=== PATIENT | female | born 1975 | race Caucasian/White ===

== ENCOUNTER 2016-12-26 15:37 | Inpatient (IN) | payer MEDICAID ==
[~2016-12-26] VITALS: Ht 160 cm; Wt 42.2 kg
--- NOTE | ~2016-12-26 | HP ---
PATIENT: CINDI SCHMIDT MEDICAL RECORD: [id number] ACCOUNT: [id number] LOCATION:[facility] : 75 ADMISSION DATE: 12/26/16 HISTORY AND PHYSICAL EXAMINATION This is a history and physical addendum. DATE OF ADMISSION: 12/26/2016 CHIEF COMPLAINT: Bug bite. HISTORY OF PRESENT ILLNESS: The patient thinks that she was bitten by a bug. She states that she thought there was something on her face that bit her. Symptoms came on suddenly. It involves the right cheek. The right hemiface is swollen and there is erythema that extends up to the lower eyelid. The patient is going to be admitted. We are going to obtain an ENT consultation. Either myself or Dr. Bran will proceed with debridement of the face and drainage of the abscess. Palpation aggravates. Nothing alleviates. Symptoms are worsening. This is a history and physical addendum. For the typed portion of the history and physical, please see the chart. This would include the past medical and surgical history, allergies, social history, family history, as well as current medications. REVIEW OF SYSTEMS: No nausea, no vomiting, no fever, no chills, no chest pain, no shortness of breath. Review of systems is negative other than as is described above. PHYSICAL EXAMINATION: GENERAL: The patient does appear acutely ill. Also appears chronically ill. The entire physical examination was performed in the presence of a female nurse. VITAL SIGNS: Reviewed. EARS: External ears appear normal. EYES: Extraocular movements are intact. NECK: Trachea is midline. CHEST: No intercostal retractions. PULMONARY: Nonlabored, no stridor. ABDOMEN: No peritonitis with movement. EXTREMITIES: No peripheral cyanosis. INTEGUMENT: As described above. Positive for rash, positive for ulceration and eschar. EXTREMITIES: No peripheral cyanosis. BACK: No thoracic kyphosis. PSYCHIATRIC: Anxious affect. NEUROLOGIC: Answers questions appropriately. LYMPHATICS: No lymphangitic streaking of face. IMPRESSION: Right facial abscess, I doubt that it was due to a bug bite or insect bite, but it appears to be spreading and worsening. PLAN: Admit. IV antibiotics. Narcotic analgesia. ENT consultation. TRANSINT:[id number] Voice Confirmation ID: [id number] DOCUMENT ID: [id number] HISTORY AND PHYSICAL [id number] CINDI SCHMIDT ROBERT MD CC: [id number] DICTATION DATE: 12/27/16 1739 GAS DISPATCHER: 12/27/16 182 ADM IN [place] [id number] [place] [id number]
[~2016-12-26 15:37] MED LIST: PREDNISONE; PROVENTIL HFA6.7 GM INH
[2016-12-26 17:21] LABS: BASOPHILS 0.3 % (0-2); EOSINOPHILS 0.5 % (0-7); HEMATOCRIT 40.9 % (36.0-48.0); HEMOGLOBIN 13.8 g/dL (12-16); IMMATURE GRANULOCYTES 0.3 % (0-5); MCH 31.9 pg (26.0-34.0); MCHC 33.7 g/dL (31.0-37.0); MCV 94.7 fL (80.0-100.0); MEAN PLATELET VOLUME 11.9 fL (7.4-10.4); MONOCYTES 8.8 % (2-11); NEUTROPHILS 74.1 % (40-80); PLATELET COUNT 157 10x3/uL (130-400); RBC 4.32 10x6/uL (4.00-5.40); RDW 12.7 % (11.5-14.5); WBC 15.1 10x3/uL (4.8-10.8)
[2016-12-26 17:31] LABS: APTT 30.5 SECONDS (22.8-39.4); INR 1.09 (0.85-1.17)
[2016-12-26 17:33] LABS: ALBUMIN 3.5 g/dL (3.4-5.0); ALKALINE PHOSPHATASE 56 U/L (46-116); ALT (SGPT) 34 U/L (10-68); CALC OSMOLALITY 268 mosm/kg (275-300); CALCIUM 9.1 mg/dL (8.5-10.1); CARBON DIOXIDE 26.7 mmol/L (21.0-32.0); CHLORIDE - SERUM 100 mmol/L (98-107); CREATININE - SERUM 0.7 mg/dL (0.6-1.3); GLUCOSE 111 mg/dL (74-106); PROTEIN - SERUM 7.4 g/dL (6.4-8.2); SODIUM 135 mmol/L (136-145); UREA NITROGEN 6 mg/dL (7-18); eGFR NON AFRICAN AMERICAN > 90 mL/min (90-120)
[2016-12-26] MEDS ORDERED: ASPIRIN325 MG PO (23:28)
[2016-12-27] VITALS (7 sets, daily range): BP systolic 101–113; BP diastolic 55–74; Ht 160 cm; Wt 42.2 kg
--- NOTE | 2016-12-27 07:45 | NUR ---
ASSESSMENT PER FLOW SHEET.PT WITHOUT DISTRESS.DENIES NEEDS.NPO FOR SURGERY TODAY,CALL LIGHT IN REACH
--- NOTE | 2016-12-27 09:29 | NUR ---
PREMEDS AND PAIN MEDS PER MAR ORDERED.
--- NOTE | 2016-12-27 09:35 | NUR ---
TO OR VIA BED
--- NOTE | 2016-12-27 11:00 | NUR ---
CONTACT ISOLATION ON ARRIVAL TO UNIT FROM PACU
--- NOTE | 2016-12-27 11:08 | NUR ---
BACK FROM PACU VIA BED.DRESSING RIGHT FACE CDI.
--- NOTE | 2016-12-27 16:08 | NUR ---
FAMILY AT BEDSIDE.PT REMAINS WITHOUT DISTRESS.PT HAS BEEN UP TO SHOWER AND TOLERATING REG DIET.MONITOR FOR NEEDS.
--- NOTE | 2016-12-27 19:45 | NUR ---
PATIENT RESTING IN BED AND DENIES NEEDS AT THIS TIME. BED IN LOWEST POSITION AND CALL LIGHT WITHIN REACH. ENCOURAGED THE PATIENT TO CALL IF SHE HAS NEEDS.
[2016-12-28 04:00] VITALS: BP 100/64
--- NOTE | 2016-12-28 07:25 | NUR ---
REQUESTING TO GO OUTSIDE, TOLD PT TO WAIT FOR DR TO ROUND, NO DISTRESS NOTED, CALL LIGHT IN REACH, WILL CONTINUE TO MONITOR
[2016-12-28 08:29] VITALS: BP 129/92
[2016-12-28] MEDS ORDERED: BACTRIM DS TABL1 TAB PO (08:34)
[2016-12-28] MEDS ORDERED: VIBRAMYCIN 100100 MG PO (08:34)
[2016-12-28] MEDS ORDERED: HYDROCODON-ACE1 EAC7 PO (08:34)
--- NOTE | 2016-12-28 09:26 | NUR ---
DISCHARGE INSTRUCTIONS AND PAPERS GIVEN, QUESTIONS ANSWERED, IV REMOVED TIP INTACT, DC PER WC WITH BELONGINGS
--- NOTE | 2016-12-30 16:59 | OP ---
PATIENT NAME: CINDI SCHMIDT MEDICAL RECORD: [id number] :75 LOCATION:[facility] ADMISSION DATE:12/26/16 SURGEON: AUSTYN VALLE MD DATE OF OPERATION: 12/27/2016 PREOPERATIVE DIAGNOSIS: Right facial abscess and cellulitis. POSTOPERATIVE DIAGNOSIS: Right facial abscess and cellulitis. PROCEDURE: Incision and drainage of right facial abscess. SURGEON: Austyn Valle MD ANESTHESIA: General. COMPLICATIONS: None. PACKING: Quarter inch plain gauze. COMPLICATIONS: None. DISPOSITION: Recovery stable. DESCRIPTION OF PROCEDURE: She was brought to the operating room and placed in supine position, sedated by anesthesia. The patient was prepped and draped in the usual sterile fashion. She has a large abscess over the right cheek with some overlying necrotic skin. A 15-blade was used to excise the necrotic skin, which was less than 1 x 1 cm. Then, just copious purulence was extruded and cultures were obtained. The wound was opened up, it was a large abscess in the cheek. The mucosa of the oral cavity was intact. First a hemostat and then cotton swabs were used to curette all out of the wound, removing all of the purulent infected material. It was then irrigated repeatedly and then coated with mupirocin ointment as it was debrided again and curetted out all this infected material. Once it was completely clean, it was packed with about a foot of quarter inch plain gauze coated copiously with mupirocin ointment. A dressing was applied. She was awakened, extubated, and transported to recovery in good condition. No complications. TRANSINT:[id number] Voice Confirmation ID: [id number] DOCUMENT ID: [id number] AUSTYN VALLE MD at 1659 CC: [id number] DICTATION DATE: 12/27/16 1344 TRANSPORTATION MECHANIC: 12/27/16 1355 DIS IN 12/28/[address] [id number]
== END 2016-12-28 10:05 | disposition home or self-care (01) | DRG 603 ==
LOC: D.ER 15:37 → D.MS 18:28
PROVIDERS: Nurse Practitioner Acute Care; Otolaryngology; ADMIT Surgery
PROC: 0H91XZZ Drainage of Face Skin, External Approach (ICD-10-PCS; principal; 2016-12-27 09:30)
DX: L02.01 Cutaneous abscess of face (principal); L03.211 Cellulitis of face; B95.62 Methicillin resistant Staphylococcus aureus infection as the cause of diseases classified elsewhere; J44.9 Chronic obstructive pulmonary disease, unspecified; F17.200 Nicotine dependence, unspecified, uncomplicated

== ENCOUNTER 2018-09-14 12:36 | Emergency (ER) | payer MEDICAID ==
[~2018-09-14] VITALS: Ht 160 cm; Wt 37.3 kg
[~2018-09-14 12:36] MED LIST changes: +ASPIRIN325 MG PO; +BACTRIM DS TABL1 TAB PO; +HYDROCODON-ACE1 EAC7 PO; +VIBRAMYCIN 100100 MG PO
[2018-09-14 12:41] VITALS: Ht 160 cm; Wt 37.3 kg
[2018-09-14] MEDS ORDERED: HYDROCODON-ACE1 EAC7 PO (15:21)
[2018-09-14 15:35] VITALS: BP 138/96
== END 2018-09-14 15:36 | disposition home or self-care (01) ==
LOC: D.ER 12:36
DX: S02.2XXA Fracture of nasal bones, initial encounter for closed fracture (principal); Y04.2XXA Assault by strike against or bumped into by another person, initial encounter; Y93.89 Activity, other specified; Y92.89 Other specified places as the place of occurrence of the external cause

== ENCOUNTER 2019-08-25 20:57 | Inpatient (IN) | payer MEDICAID ==
[~2019-08-25] VITALS: Ht 160 cm; Wt 36.4 kg
[2019-08-25 21:33] LABS: BASOPHILS 0.4 % (0-2); EOSINOPHILS 0.8 % (0-7); HEMATOCRIT 38.9 % (36.0-48.0); HEMOGLOBIN 12.8 g/dL (12-16); IMMATURE GRANULOCYTES 0.2 % (0-5); LYMPHOCYTES 26.2 % (15-50); MCH 30.5 pg (26.0-34.0); MCHC 32.9 g/dL (31.0-37.0); MCV 92.8 fL (80.0-100.0); MEAN PLATELET VOLUME 11.5 fL (7.4-10.4); MONOCYTES 7.6 % (2-11); NEUTROPHILS 64.8 % (40-80); PLATELET COUNT 257 10x3/uL (130-400); RBC 4.19 10x6/uL (4.00-5.40); RDW 13.6 % (11.5-14.5); WBC 12.4 10x3/uL (4.8-10.8)
[2019-08-25 21:44] LABS: ANION GAP 11.6 mmol/L (8-16); CALCIUM 9.2 mg/dL (8.5-10.1); CARBON DIOXIDE 27.9 mmol/L (21.0-32.0); CREATININE - SERUM 0.9 mg/dL (0.6-1.3); POTASSIUM - SERUM 3.5 mmol/L (3.5-5.1)
[2019-08-25 21:46] LABS: APTT 27.9 SECONDS (22.8-39.4); INR 0.98 (0.85-1.17)
[2019-08-25 21:50] LABS: BILIRUBIN - TOTAL 0.41 mg/dL (0.2-1.3); MAGNESIUM - SERUM 2.1 mg/dL (1.8-2.4); PROTEIN - SERUM 8.1 g/dL (6.4-8.2)
[2019-08-25 21:52] LABS: HCG SERUM NEGATIVE (NEGATIVE)
[2019-08-25 22:15] VITALS: BP 144/91
--- NOTE | 2019-08-25 22:15 | NUR ---
PT REQUESTING TO GO OUTSIDE. PT STATES "I JUST NEED A FEW MINUTES OUTSIDE". RN EXPLAINED TO PT THE IMPORTANCE OF STAYING IN ROOM TO TEND TO HER NEEDS. PT REFUSING AND REQUESTING TO LEAVE AMA
[2019-08-25 22:22] LABS: BILIRUBIN NEGATIVE (NEGATIVE); GLUCOSE NEGATIVE (NEGATIVE); KETONE NEGATIVE (NEGATIVE); NITRITE POSITIVE (NEGATIVE); SPECIFIC GRAVITY 1.015 (1.005-1.020); UROBILINOGEN NORMAL (NORMAL)
--- NOTE | 2019-08-25 22:22 | NUR ---
PT REFUSED TO SIGN AMA FORM. 2 RNS AT SIDE TO WITNESS. RISKS OF LEAVING EXPLAINED TO PT BY 3 DIFFERENT RNS. PT STATES SHE IS LEAVING ANYWAY. EDP AURELIO HINDS
[2019-08-25 22:23] LABS: BACTERIA MANY /hpf (NEGATIVE); EPITHELIAL CELLS 0-5 /hpf (0-5); RED CELLS - URINE NONE SEEN /hpf (0-5)
[2019-08-25 22:24] LABS: UDS - AMPHET POSITIVE QUAL (NEGATIVE); UDS - BARB NEGATIVE QUAL (NEGATIVE); UDS - BENZO POSITIVE QUAL (NEGATIVE); UDS - COCAINE NEGATIVE QUAL (NEGATIVE); UDS - OPIATE NEGATIVE QUAL (NEGATIVE); UDS - PCP NEGATIVE QUAL (NEGATIVE); UDS - THC POSITIVE QUAL (NEGATIVE)
--- NOTE | 2019-08-25 22:35 | NUR ---
PT LEFT ED AND WENT TO PARKING LOT AND SPOKE WITH FRIEND. PT FRIEND AT SIDE. PT RETURNED TO ED WITHOUT LEAVING HOSPITAL PROPERTY. EDP AURELIO NOTIFIED.
[2019-08-25 22:45] VITALS: BP 119/79
--- NOTE | 2019-08-25 23:00 | NUR ---
VERBAL ORDER TO CANCEL IV MORPHINE ORDER PER DR CAREY
--- NOTE | 2019-08-25 23:09 | NUR ---
PATIENTS IV RESTARTED. 20 G LEFT FOREARM X 3 ATTEMPTS
[2019-08-25 23:15] VITALS: BP 145/92
[2019-08-25 23:45] VITALS: BP 133/89
[2019-08-26 00:34] VITALS: BP 138/84
--- NOTE | 2019-08-26 00:44 | NUR ---
Patient received from the emergency room via stretcher at this time, Patient very agitated and yelling at staff demanding something to drink and something for pain. Patient was advised that she was not allowed to have anything to drink due to possible emergent surgery and pending surgery in the a.m. Patient begin to become very agitated yelling and cussing at staff, patient states that "I will get something to drink even if I have to get up and get it myself". Patient refusing to move fromThe ICU bed, patient yelling that she is not able to move due to the severity of her pain and her significant need for something to drink. Patient was informed that she would need to be hooked up to the monitors and vital signs checked so that we could page the on-call doctor and verify orders for n.p.o. status and pain medication. Patient became angry and moved herself over to the hospital bed.
--- NOTE | 2019-08-26 00:44 | NUR ---
Patient admission information was not completed due to patient yelling and screaming at staff, becoming very agitated and refusing to cooperate with care.
--- NOTE | 2019-08-26 01:00 | NUR ---
Dr. Bernard was paged at this time, And updated on the patient's status and the patient's increased agitation and aggressive behavior. confirmed order to keep patient n.p.o. due to possible emergent surgery during the night, and need for surgery in the morning if patient remains stable through the night. No new orders were given for pain medication at this time. The doctor was informed that the patient was saying that if she did not get pain medication or something the drink that she was going to leave the hospital because she did not care she was hurting too bad and was very thirsty. advised if patient refuses treatments and does not want to comply with the plan of care, to inform the patient of the risk of internal bleeding, organ damage, and , and have the patient sign out AMA.
--- NOTE | 2019-08-26 01:05 | NUR ---
While informing the patient of the update with the admitting doctor and confirmation of the orders. Patient began yelling again and interrupting the nurse every time the nurse was try to explain what was going on. After several minutes of the patient interrupting the nurse while trying to explain the concerns the patient had, the nurse advised the patient that if she wanted to understand to let the nurse speak. Nurse then informed the patient of the plan of care of IV fluids for hydration, repeated lab draws to monitor for internal bleeding, repeat test in the a.m. and probable surgery for repairing of the splenic injury. Patient was advised that this plan of care would include monitoring of vital signs, administering Tylenol for pain, and before the nurse could finished the patient stated "if this is all you do, that I do not want this and I am not going to stay here, I am just going to go home and get some pain medicine somewhere else".
--- NOTE | 2019-08-26 01:10 | NUR ---
We will getting the AMA form for the patient to sign, patient was advised not to self remove her IV due to increased chance of bleeding and allow the staff to remove her IV. Patient was presented with leaving AGAINST MEDICAL ADVICE release form. Patient was explained the risk of leaving the hospital including but not limited to the risk of , permanent damage, and/or disability to body and or mind, etc. Patient was advised the benefits of staying in the hospital for future diagnostic and/or treatment purposes included but not limited to medications, treatments, surgery, monitoring, etc. Patient was explained the alternatives to leaving including but not limited to returning at any time without prejudiced or going to another facility etc. Patient stated that she understood that she can and that is why she wants something to drink and something more than Tylenol for pain. Patient advised that she did not want to stay here if this was the treatment that she was going to receive, and refused to stay and be evaluated by the surgeon in the morning to have him evaluate and explain her possible treatment options. When presented with a form the patient refused to sign the AMA form stating "I not going to sign because I am under duress, and I am going to if I do not get something to drink and I am hurting too bad, you are not doing anything for me so I am going to leave and go find something for pain somewhere else".
--- NOTE | 2019-08-26 01:20 | NUR ---
IV removed from left forearm with catheter intact, dressing placed over IV site with firm pressure. Patient was removed from all monitoring devices, patient was getting clothing and she changed into her personal clothing, patient was escorted to the ER waiting room to contact her ride home.
[2019-08-27 08:31] VITALS: Ht 160 cm; Wt 36.4 kg
== END 2019-08-26 01:20 | disposition left against medical advice (07) | DRG 815 ==
LOC: D.ER 20:57 → D.CVICU 23:04
PROVIDERS: Emergency Medicine; ADMIT Surgery; ATTEND Surgery
DX: S36.032A Major laceration of spleen, initial encounter (principal); N39.0 Urinary tract infection, site not specified; N30.00 Acute cystitis without hematuria; V86.99XA Unspecified occupant of other special all-terrain or other off-road motor vehicle injured in nontraffic accident, initial encounter; F17.200 Nicotine dependence, unspecified, uncomplicated; J43.9 Emphysema, unspecified; F15.10 Other stimulant abuse, uncomplicated; F12.10 Cannabis abuse, uncomplicated

== ENCOUNTER 2019-09-14 18:00 | Emergency (ER) | payer MEDICAID ==
[~2019-09-14] VITALS: Ht 160 cm; Wt 38.6 kg
[2019-09-14 18:02] VITALS: Ht 160 cm; Wt 38.6 kg
[2019-09-14 19:48] LABS: BILIRUBIN NEGATIVE (NEGATIVE); GLUCOSE NEGATIVE (NEGATIVE); KETONE NEGATIVE (NEGATIVE); NITRITE POSITIVE (NEGATIVE); SPECIFIC GRAVITY 1.015 (1.005-1.020); UROBILINOGEN NORMAL (NORMAL)
[2019-09-14 19:49] LABS: BACTERIA MANY /hpf (NEGATIVE); EPITHELIAL CELLS 0-5 /hpf (0-5); HCG URINE NEGATIVE (NEGATIVE); RED CELLS - URINE 0-5 /hpf (0-5); WHITE CELLS - URINE >50 /hpf (NEGATIVE)
[2019-09-14 19:57] LABS: BASOPHILS 0.4 % (0-2); EOSINOPHILS 1.6 % (0-7); HEMATOCRIT 39.7 % (36.0-48.0); HEMOGLOBIN 12.6 g/dL (12-16); IMMATURE GRANULOCYTES 0.1 % (0-5); LYMPHOCYTES 22.1 % (15-50); MCH 29.3 pg (26.0-34.0); MCHC 31.7 g/dL (31.0-37.0); MCV 92.3 fL (80.0-100.0); MONOCYTES 7.1 % (2-11); NEUTROPHILS 68.7 % (40-80); PLATELET COUNT 296 10x3/uL (130-400); RDW 14.3 % (11.5-14.5); WBC 10.5 10x3/uL (4.8-10.8)
[2019-09-14 20:06] LABS: ANION GAP 10.3 mmol/L (8-16); CALCIUM 8.6 mg/dL (8.5-10.1); CARBON DIOXIDE 26.9 mmol/L (21.0-32.0); POTASSIUM - SERUM 3.2 mmol/L (3.5-5.1)
[2019-09-14 20:13] LABS: ALBUMIN 3.9 g/dL (3.4-5.0); BILIRUBIN - TOTAL 0.47 mg/dL (0.2-1.3); PROTEIN - SERUM 7.7 g/dL (6.4-8.2)
[2019-09-14] MEDS ORDERED: KEFLEX500 MG PO (20:21)
[2019-09-14 21:10] VITALS: BP 129/77
== END 2019-09-14 21:10 | disposition home or self-care (01) ==
LOC: D.ER 18:00
PROVIDERS: Family Medicine
DX: S09.90XA Unspecified injury of head, initial encounter (principal); E16.2 Hypoglycemia, unspecified; E87.6 Hypokalemia; S36.032D Major laceration of spleen, subsequent encounter; N39.0 Urinary tract infection, site not specified; Y04.2XXA Assault by strike against or bumped into by another person, initial encounter; Y93.9 Activity, unspecified; Y92.9 Unspecified place or not applicable; R51 Headache; R07.9 Chest pain, unspecified; M54.9 Dorsalgia, unspecified; M79.605 Pain in left leg; M79.604 Pain in right leg